=== PATIENT | male | born 1985 | race Caucasian/White ===

== ENCOUNTER 2021-07-04 13:22 | Emergency (ER) | payer MEDICAID, SELFPAY ==
[2021-07-04 13:28] VITALS: BP 188/130; PULSE 116; RESP 16; TEMP 35.9; O2SAT 97
[2021-07-04 13:45] VITALS: BP 188/130; PULSE 116; RESP 16; TEMP 35.9; O2SAT 97
--- NOTE | 2021-07-04 14:10 | ED.SKABFB ---
HPI - Skin/Abscess/Foreign Bdy General Chief complaint: Skin/Abscess/Foreign Body Stated complaint: Possible infected Cist on the back of Neck Source: patient Mode of arrival: ambulatory Limitations: no limitations History of Present Illness HPI narrative: Patient is a 35-year-old male who presents with an abscess to left posterior neck. Patient reports a history of boils . He reports abscess x2 days, reports minimal amount of drainage. Reports tenderness with palpation, denies fever, chills or body aches. He reports a history of hypertension and is noncompliant with his medications. MD complaint: abscess/boil Related Data Home Medications Medication Instructions Recorded Confirmed losartan 100 mg PO DAILY 07/04/21 07/04/21 Allergies Allergy/AdvReac Type Severity Reaction Status Date / Time No Known Allergies Allergy Verified 07/04/21 13:40 Review of Systems Review of Systems: CONSTITUTIONAL: Denies fever, chills, or sweats. EYES: Denies visual changes, redness, or discharge. ENT: Denies rhinorrhea, congestion, sore throat, or otalgia. CARDIOVASCULAR: Denies chest pain, palpitations, or edema. RESPIRATORY: Denies cough or dyspnea. GASTROINTESTINAL: Denies abdominal pain, nausea, vomiting, or diarrhea. GENITOURINARY: Denies dysuria or hematuria. SKIN: Abscess to posterior neck MUSCULOSKELETAL: Denies back pain, joint pain, or myalgia. NEUROLOGIC: Denies headache, numbness, dizziness, or weakness. PSYCHIATRIC: Denies anxiety or depression. PMFSH Past Medical History Medical History (Updated 07/04/21 @ 14:19 by EDE Urrutia) HTN (hypertension) Hypercholesterolemia Family History Family History (Updated 07/04/21 @ 14:13 by DEE Urrutia) Other Heart disease Hypertension Social History Social History (Updated 07/04/21 @ 14:13 by DEE Urrutia) Smoking status: Current every day smoker Alcohol intake: current Alcohol use details: occasional Substance use: never Comments At the time of signature, I have reviewed and agree with nursing past medical, surgical, social, and family history unless otherwise noted. Please see nursing chart for further information. There is no relevant family history pertinent to the presenting complaint. Exam Narrative: GENERAL: Well-appearing, well-nourished, and in no acute distress. HEAD: Normocephalic, atraumatic. EYES: EOMI. No redness or drainage. Conjunctiva are normal. ENT: Mucous membranes pink and moist. NECK: AROM. Supple. No lymphadenopathy. CHEST: No respiratory distress. HEART: Tachycardic and hypertensive EXTREMITIES: Normal range of motion. SKIN: Approximate 3 x 3 cm abscess to left posterior neck, erythema noted, fluctuation and induration noted. NEURO: No focal deficits. Alert and oriented x3. Gait steady. PSYCH: Normal affect. No signs of depression or anxiety. Course Vital Signs Vital signs: Vital Signs Temperature 35.9 C L 07/04/21 13:28 Pulse Rate 116 H 07/04/21 13:28 Respiratory Rate 16 07/04/21 13:28 Blood Pressure 188/130 H 07/04/21 13:28 Pulse Oximetry 97 07/04/21 13:28 Temperature 35.9 C L 07/04/21 13:45 Pulse Rate 116 H 07/04/21 13:45 Respiratory Rate 16 07/04/21 13:45 Blood Pressure 188/130 H 07/04/21 13:45 Pulse Oximetry 97 07/04/21 13:45 Procedures Abscess I/D neck: Date of Incision: 07/04/21 Time of Incision: 14:15 Side (if applicable): left Local Anesthetic: lidocaine 1% Amount of anesthesia used (mL): 5 Technique: incised with #11 blade Amount of fluid expressed (mL): 4 Irrigation: Yes Packing used?: plain I&D Results: Pus Abcess I&D Additional Comments: Dressing applied by RN MDM - Skin/Abscess/Foreign Bdy MDM Narrative Medical decision making narrative: Discussed with patient that he is hypertensive and cardiac. Discussed the importance of taking medications as directed. O
== END 2021-07-04 14:24 | disposition home or self-care (01) ==
PROVIDERS: Emergency Provider Nurse Practitioner
DX: L02.11 Cutaneous abscess of neck (principal); F17.200 Nicotine dependence, unspecified, uncomplicated
CPT/HCPCS: 10061; 87070; 87205; 99212; G0463